=== PATIENT | female | born 1990 | race Asian ===

== ENCOUNTER 2020-08-14 04:55 | Emergency (ER) | payer OTHER ==
[2020-08-14] MEDS ORDERED: LIDOCAINE VISCOUS 2% 15 ML UDC MM STA ×2 (07:55→10:34)
[2020-08-14] MEDS ORDERED: MAG HYDROX/AL HYDROX/SIMETH 30 ML UDC PO STA ×2 (07:55→10:34)
[2020-08-14 08:44] LABS: BASOPHILS % (AUTO) 0.4 %; EOSINOPHILS # (AUTO) 0.1 10^3/uL (0.0-0.7); HCT - HEMATOCRIT 42.4 % (37.0-47.0); HGB - HEMOGLOBIN 14.1 g/dL (12.0-16.0); LYMPHOCYTES # (AUTO) 1.8 10^3/uL (1.5-3.5); LYMPHOCYTES % (AUTO) 24.8 %; MEAN CORPUSCULAR HEMOGLOBIN 30.1 pg (27.0-31.0); MEAN CORPUSCULAR HGB CONC 33.3 g/dL (32.0-36.0); MEAN CORPUSCULAR VOLUME 90.4 fL (81.0-99.0); MEAN PLATELET VOLUME 9.6 fL (7.9-10.8); MONOCYTES # (AUTO) 0.5 10^3/uL (0.0-1.0); MONOCYTES % (AUTO) 6.5 %; NEUTROPHILS # (AUTO) 4.8 10^3/uL (1.5-6.6); PLT - PLATELET COUNT 284 10^3/uL (130-450); RED BLOOD COUNT 4.69 10^6/uL (4.20-5.40); RED CELL DISTRIBUTION WIDTH 12.6 % (12.0-15.0); WHITE BLOOD COUNT 7.2 x10^3/uL (4.8-10.8)
[2020-08-14 08:56] LABS: ALBUMIN 4.4 g/dL (3.2-5.5); ALBUMIN/GLOBULIN RATIO 1.4 (1.0-2.2); BILIRUBIN,TOTAL 0.6 mg/dL (0.2-1.0); CALCIUM 9.1 mg/dL (8.5-10.3); CREATININE 0.6 mg/dL (0.4-1.0); POTASSIUM 3.7 mmol/L (3.5-5.0); TOTAL PROTEIN 7.6 g/dL (6.7-8.2)
--- NOTE | 2020-08-14 09:48 | ED Physician Documentation ---
PD HPI ABD PAIN - Stated complaint Stated Complaint: ABD PX - Chief complaint Chief Complaint: Abd Pain - History obtained from History obtained from: Patient, Family - History of Present Illness Timing - onset: Enter time (0200), Today Timing - duration: Hours Timing - details: Gradual onset, Still present Quality: Sharp, Pain Location: Epigastric Improved by: Laying still Worsened by: Moving, Breathing, Position, Palpation Associated symptoms: No: Nausea, Vomiting, Diarrhea, Constipation Similar symptoms before: No diagnosis Recently seen: Not recently seen - Additional information Additional information: Previously well 30-year-old female has had an episode of epigastric pain that began about 2 AM. She has had these pains previously they usually resolve before morning and today this pain is persisted. She did state that she had shrimp salmon and pork last night for dinner. She has not had prior gallbladder ultrasound.She has not used medications for treatment of her stomach previously. Review of Systems Constitutional: denies: Fever Eyes: denies: Decreased vision Ears: denies: Ear pain Nose: denies: Congestion Throat: denies: Sore throat Cardiac: denies: Chest pain / pressure, Palpitations Respiratory: denies: Dyspnea, Cough GI: reports: Abdominal Pain. denies: Nausea, Vomiting, Constipation, Diarrhea : denies: Dysuria, Frequency PD PAST MEDICAL HISTORY - Past Medical History Past Medical History: No - Past Surgical History Past Surgical History: No - Present Medications Home Medications: Ambulatory Orders Medication Instructions Recorded Confirmed Etonogestrel [Nexplanon] 68 mg SUBQ 08/14/20 Sucralfate [Carafate] 1 gm PO ACHS #60 tablet 08/14/20 - Allergies Allergies/Adverse Reactions: Allergies Allergy/AdvReac Type Severity Reaction Status Date / Time No Known Drug Allergies Allergy Verified 08/14/20 05:09 - Social History Does the pt smoke?: No Smoking Status: Never smoker Does the pt drink ETOH?: No Does the pt have substance abuse?: No - Immunizations Immunizations are current?: Yes PD ED PE NORMAL - Vitals Vital signs reviewed: Yes (Hypertensive) - General General: Alert and oriented X 3, No acute distress, Well developed/nourished - HEENT HEENT: Atraumatic, PERRL, EOMI - Neck Neck: Supple, no meningeal sign, No bony TTP - Cardiac Cardiac: RRR, No murmur - Respiratory Respiratory: No respiratory distress, Clear bilaterally - Abdomen Abdomen: Normal bowel sounds, Soft, Non distended, No organomegaly, Other (Epigastric and right upper quadrant tenderness to deep palpation without guarding.) - Back Back: No CVA TTP, No spinal TTP - Derm Derm: Normal color, Warm and dry, No rash - Extremities Extremities: No deformity, No edema - Neuro Neuro: Alert and oriented X 3, webmaster 2-12 intact, No motor deficit, No sensory deficit, Normal speech Eye Opening: Spontaneous Motor: Obeys Commands Verbal: Oriented GCS Score: 15 - Psych Psych: Normal mood, Normal affect Results - Vitals Vitals: Vital Signs - 24 hr 08/14/20 08/14/20 08/14/20 05:03 05:19 11:14 Temperature 37 C 37 C 36.6 C Heart Rate 74 74 75 Respiratory 18 18 18 Rate Blood Pressure 139/101 H 139/101 H 124/84 H O2 Saturation 98 98 99 Oxygen O2 Source Room air - Labs Labs: Laboratory Tests 08/14/20 08/14/20 08/14/20 08:25 08:25 08:25 WBC 7.2 RBC 4.69 Hgb 14.1 Hct 42.4 MCV 90.4 MCH 30.1 MCHC 33.3 RDW 12.6 Plt Count 284 MPV 9.6 Neut # (Auto) 4.8 Lymph # (Auto) 1.8 [place] # (Auto) 0.5 Eos # (Auto) 0.1 Baso # (Auto) 0.0 Absolute Nucleated RBC 0.00 Nucleated RBC % 0.0 Sodium 136 Potassium 3.7 Chloride 103 Carbon Dioxide 25 Anion Gap 8.0 BUN 10 Creatinine 0.6 Estimated GFR (MDRD) 118 Glucose 97 Calcium 9.1 Total Bilirubin 0.6 AST 15 ALT 22 Alkaline Phosphatase 47 Troponin I High Sens 2.9 Total Protein 7.6 Albumin 4.4 Globulin 3.2 Albumin/Globulin Ratio 1.4 Lipase 21 L - Rads (name of study) Right upper quadrant ultrasound Radiology: Prelim report reviewed (Impression: No findings of cholecystitis. Small gallbladder polyps, of unlikely clinical significance and below size threshold follow-up recommendation. Mild hepatic steatosis.), EMP read indepedently, See rad report PD MEDICAL DECISION MAKING - ED course Complexity details: reviewed results, re-evaluated patient, considered differential, d/w patient, d/w family ED course: 30-year-old female with epigastric pain is given a GI cocktail of viscous lidocaine and Mylanta without change in her pain. An ultrasound of the gallbladder is obtained which is fairly unremarkable. The patient continues to have pain and she is administered a second GI cocktail this time with relief of her pain. She is diagnosed with gastritis or an ulcer and placed onto acid reduction therapy. Departure - Departure Disposition: 01 Home, Self Care Clinical Impression: Gastritis Qualifiers: Gastritis type: unspecified gastritis Chronicity: acute Gastritis bleeding: without bleeding Qualified Code(s): K29.00 - Acute gastritis without bleeding Condition: Stable Instructions: ED PUD Vs Gastritis Follow-Up: [facility] [Provider Group] Prescriptions: Sucralfate [Carafate] 1 gm PO ACHS #60 tablet Comments: Today we found two items of concern. The ultrasound of your gallbladder reveals what looks like gallbladder polyps. There may be a problem with the function of your gallbladder and this requires a second test. This is something that can be done as an outpatient. A HIDA scan demonstrates the ability of the gallbladder to contract. In addition it appears that the pain and bloating you are having are coming from your stomach and this pain was improved with use of the viscous lidocaine. The recommendation for that is to take a medication to reduce the acid in your stomach for 2 weeks and to take some Carafate to aid in the healing. You will need to citrus picker either Nexium or Pepcid AC which are available [id number] and use this on a regular basis to reduce the acid. Discharge Date/Time: 08/14/20 11:22
[2020-08-14] MEDS ORDERED: KETOROLAC 30 MG/ML VIAL IVP STA (09:53)
--- NOTE | 2020-08-14 10:09 | Ultrasound Report ---
PROCEDURE: Abdomen Limited INDICATIONS: RUQ pain TECHNIQUE: Real-time focused scanning was performed of the abdomen, with image documentation. COMPARISON: None FINDINGS: Increased hepatic parenchymal echogenicity indicative of diffuse hepatic steatosis. No focal hepatic mass. No intrahepatic or extra hepatic biliary ductal dilatation. The common duct measures between 2 and 4 mm along its visualized course, normal. The gallbladder is normally distended gallbladder wall thickening. There are 2 tiny gall bladder poly ps identified, one measuring approximately 4 mm and the other measuring approximately 6 mm in greates t dimension. These are of unlikely clinical consequence. Normal appearance of the right kidney with no shadowing kyphosis or hydronephrosis. Visualized portions of the pancreas are within normal limits. IMPRESSION: No findings of cholecystitis. Small gallbladder polyps, of unlikely clinical significance and below size threshold follow-up recomm endation. Mild hepatic stenosis. Reviewed by: Jacky Baptiste MD on 08/14/2020 10:07 AM PDT Approved by: Jacky Baptiste MD on 08/14/2020 10:07 AM PDT Station ID: [id number]
[2020-08-14] MEDS ORDERED: SUCRALFATE 1 GM/10 ML UDC PO STA (10:34)
[2020-08-14 11:15] VITALS: BP 124/84
== END 2020-08-14 11:22 | disposition home or self-care (01) ==
LOC: ED 04:55
DX: K29.00 Acute gastritis without bleeding (principal); K82.4 Cholesterolosis of gallbladder; K76.0 Fatty (change of) liver, not elsewhere classified
CPT/HCPCS: 36415; 76705; 80053; 83690; 84484; 85025; 96374; 99284; A9270